=== PATIENT | female | born 1990 | race Caucasian/White ===

== ENCOUNTER 2016-08-12 22:19 | Emergency (ER) | payer MEDICAID, OTHER ==
[2016-08-12 22:44] VITALS: BP 110/72
--- NOTE | 2016-08-12 23:10 | EDM.PDOC ---
ED HPI Trauma - General Chief Complaint: Lower Extremity Injury/Pain Stated Complaint: INJURY TO BOTH ANKLES Time Seen by Provider: 08/12/16 22:40 Source: Reports: Patient History Limitations: Reports: No limitations - History of Present Illness INITIAL COMMENTS - FREE TEXT/NARRATIVE: 25 YO ALICJA presents to ER complaining of bilateral ankle pain after losing her balance at home and twisting one ankle and hurting the other at the same time while trying to compensate from the fall. Pt denies any other injury. Symptom Onset Date: 08/12/16 Occurred When: just prior to arrival Occurred Where: home Method of Injury: fall Severity: mild Pain/Injury Location: Reports: lower extremity, right, lower extremity, left Consciousness: Reports: no loss of consciousness Associated Symptoms: Reports: no other symptoms Allergies/ADRs: Allergies No Known Drug Allergies Allergy (Verified 08/12/16 22:29) Cannot Remember Home Medications: Ambulatory Orders Ibuprofen [Motrin] 600 mg PO Q6H #20 tablet 08/12/16 Past Medical History HEENT History: Reports: Hard of hearing, Impaired vision Cardiovascular History: Reports: None Respiratory History: Reports: Asthma Gastrointestinal History: Reports: None Genitourinary History: Reports: None 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: Musculoskeletal History: Reports: Other (see below) Other Musculoskeletal History: scoliosis Neurological History: Reports: Cerebral palsy, Concussion, CVA, Head trauma, Migraines Psychiatric History: Reports: Psych Hospitalization(s), Schizophrenia Endocrine/Metabolic History: Reports: Diabetes, type II Other Endocrine/Metabolic History: States does not take any medication at present time Hematologic History: Reports: None Immunologic History: Reports: None Dermatologic History: Reports: None - Past Surgical History HEENT Surgical History: Reports: None Cardiovascular Surgical History: Reports: None Respiratory Surgical History: Reports: None GI Surgical History: Reports: None Female Surgical History: Reports: None Musculoskeletal Surgical History: Reports: Other (see below) Other Musculoskeletal Surgeries/Procedures:: right ankle lengthened achilles tendon Dermatological Surgical History: Reports: None Social & Family History - Tobacco Use Smoking Status *Q: Current Every Day Smoker Years of Tobacco use: 5 Packs/Tins Daily: 0.5 Used Tobacco, but Quit: No Second Hand Smoke Exposure: Yes - Caffeine Use Caffeine Use: Reports: Soda, Tea - Alcohol Use Days Per Week of Alcohol Use: 4 Number of Drinks Per Day: 6 Total Drinks Per Week: 24 - Recreational Drug Use Recreational Drug Use: No Drug Use in Last 12 Months: No Recreational Drug Type: Reports: Marijuana/Hashish Review of Systems - Review of Systems Review Of Systems: See Below Constitutional: Reports: no symptoms Eyes: Reports: no symptoms Ears: Reports: no symptoms Nose: Reports: no symptoms Mouth/Throat: Reports: no symptoms Respiratory: Reports: No Symptoms Cardiovascular: Reports: no symptoms GI/Abdominal: Reports: No symptoms Genitourinary: Reports: no symptoms Musculoskeletal: Reports: leg pain (bilateral ankle) Skin: Reports: no symptoms Neurological: Reports: No Symptoms Psychiatric: Reports: no symptoms Trauma Exam - Physical Exam Exam: See Below Exam Limited By: No limitations General Appearance: Reports: alert, WD/WN, no apparent distress Head: Reports: atraumatic, normocephalic Ears: Reports: normal external exam, normal canal, hearing grossly normal, normal TMs Nose: Reports: normal inspection, normal mucousa, no blood Throat/Mouth: Reports: Normal inspection, Normal lips, Normal teeth, Normal gums , Normal oropharynx, Normal voice, No airway compromise Neck: Reports: non-tender, full range of motion, normal alignment, normal inspection Respiratory Exam: Reports: no respiratory distress, lungs clear, normal breath sounds Cardiovascular: Reports: normal peripheral pulses, regular rate, rhythm, no edema, no gallop, no JVD, no murmur, no rub GI/Abdominal: Reports: normal bowel sounds, soft, non tender, no organomegaly, no distention, no abnormal bruit, no mass Back: Reports: full range of motion, normal inspection, non-tender Extremities: Reports: no evidence of injury, normal range of motion, non-tender , no pedal edema, pelvis stable Neurologic: Reports: melt supervisor II-XII nml as tested, no motor/sensory deficits, alert , normal mood/affect, oriented x 3 Skin: Reports: Normal color, Warm/dry Course - Vital Signs Last Recorded V/S: Last Vital Signs Temp 36.9 C 08/12/16 22:42 Pulse 95 08/12/16 22:42 Resp 18 08/12/16 22:42 BP 110/72 08/12/16 22:42 Pulse Ox 99 08/12/16 22:42 - Orders/Labs/Meds Orders: Active Orders 24 hr Category Date Time Status Ankle Min 3V Bi [CR] Stat Exams 04/22/17 22:34 Ordered Elastic Wrap [OM.PC] Routine Oth 08/12/16 23:18 Ordered Meds: Medications Discontinued Medications Generic Name Dose Route Start Last Admin Trade Name Freq PRN Reason Stop Dose Admin Ibuprofen 600 mg 08/12/16 23:13 Motrin PO 08/12/16 23:14 ONETIME ONE Ketorolac Tromethamine 60 mg 08/12/16 23:17 Toradol IM 08/12/16 23:18 ONETIME ONE - Radiology Interpretation Free Text/Narrative:: bilateral ankle xrays- NAD Departure - Departure Time of Disposition: 23:23 Disposition: Home, Self-Care 01 Condition: good Clinical Impression: Left ankle sprain Qualifiers: Encounter type: initial encounter Involved ligament of ankle: unspecified ligament Qualified Code(s): S93.402A - Sprain of unspecified ligament of left ankle, initial encounter Right ankle sprain Qualifiers: Encounter type: initial encounter Involved ligament of ankle: unspecified ligament Qualified Code(s): S93.401A - Sprain of unspecified ligament of right ankle, initial encounter Prescriptions: Ibuprofen [Motrin] 600 mg PO Q6H #20 tablet Instructions: Ankle Sprain, [id number] Referrals: Xochitl Infante ROAD ADVISOR [Primary Care Provider] - Forms: ED Department Discharge - My Orders Last 24 Hours: My Active Orders 08/12/16 22:34 Ankle Min 3V Bi [CR] Stat 08/12/16 23:18 Elastic Wrap [OM.PC] Routine - Assessment/Plan Last 24 Hours: My Active Orders 08/12/16 22:34 Ankle Min 3V Bi [CR] Stat 08/12/16 23:18 Elastic Wrap [OM.PC] Routine Assessment:: 1. bilateral ankle sprain Plan: 1. rest/ice/elevation/crutches/toni wrap 2. motrin 600mg PO Q6 prn pain 3. follow up at clinic for further evaluation and treatment
[2016-08-12] MEDS ORDERED: Ibuprofen 600 MG Tab PO ONE (23:13)
[2016-08-12] MEDS ORDERED: Ketorolac 60 MG/2 ML SDV IM ONE (23:17)
== END 2016-08-12 23:45 | disposition home or self-care (01) ==
LOC: KA.ED 22:19
DX: S93.402A Sprain of unspecified ligament of left ankle, initial encounter (principal); S93.401A Sprain of unspecified ligament of right ankle, initial encounter; J45.909 Unspecified asthma, uncomplicated; G43.909 Migraine, unspecified, not intractable, without status migrainosus; E11.9 Type 2 diabetes mellitus without complications; F20.9 Schizophrenia, unspecified; F17.210 Nicotine dependence, cigarettes, uncomplicated; X50.1XXA Overexertion from prolonged static or awkward postures, initial encounter; Y92.009 Unspecified place in unspecified non-institutional (private) residence as the place of occurrence of the external cause
CPT/HCPCS: 73610; 96372; 99283; J1885

== ENCOUNTER 2017-08-16 10:18 | Emergency (ER) | payer MEDICAID ==
[2017-08-16 10:45] VITALS: BP 127/73
[2017-08-16] MEDS: Ketorolac 60 MG/2 ML SDV IM ONE (11:05)
--- NOTE | 2017-08-16 11:19 | EDM.PDOC ---
ED HPI GENERAL MEDICAL PROBLEM - General Chief Complaint: Lower Extremity Injury/Pain Stated Complaint: right ankle injury Time Seen by Provider: 08/16/17 10:55 Source of Information: Reports: Patient History Limitations: Reports: No Limitations - History of Present Illness INITIAL COMMENTS - FREE TEXT/NARRATIVE: 26 YO WF presents to ER with right ankle pain from injury yesterday. Pt reports she accidentally twisted ankle while stepping on uneven surface. Pt denies fall. Pt reports she was able to ambulate on ankle after injury but woke this am with more pain and swelling prompting ER evaluation. Pt denies any foot pain or other complaints or injuries. Onset Date: 08/15/17 Duration: Day(s): (2) Location: Reports: Lower Extremity, Right Quality: Reports: Ache Severity: Mild Improves with: Reports: Rest Worsens with: Reports: Movement Context: Reports: Activity Associated Symptoms: Reports: No Other Symptoms Treatments DRIER: Reports: Acetaminophen, Cold Therapy Right Ankle Pain Score (Numeric/FACES): 10 - Related Data Allergies Allergy/AdvReac Type Severity Reaction Status Date / Time No Known Drug Allergies Allergy Cannot Verified 08/16/17 10:38 Remember Home Meds: Home Meds Ibuprofen [Motrin] 600 mg PO Q6H #20 tablet 08/12/16 [Rx] traMADol [Ultram] 50 mg PO Q6H PRN #15 tab 08/16/17 [Rx] Past Medical History HEENT History: Reports: Hard of Hearing, Impaired Vision Cardiovascular History: Reports: None Respiratory History: Reports: Asthma Gastrointestinal History: Reports: None Genitourinary History: Reports: None 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: Musculoskeletal History: Reports: Other (See Below) Other Musculoskeletal History: scoliosis Neurological History: Reports: Cerebral Palsy, Concussion, CVA, Head Trauma, Migraines Psychiatric History: Reports: Psych Hospitalization(s), Schizophrenia Endocrine/Metabolic History: Reports: Diabetes, Type II Other Endocrine/Metabolic History: States does not take any medication at present time Hematologic History: Reports: None Immunologic History: Reports: None Dermatologic History: Reports: None - Past Surgical History Cardiovascular Surgical History: Reports: None Respiratory Surgical History: Reports: None GI Surgical History: Reports: None Female Surgical History: Reports: None Musculoskeletal Surgical History: Reports: Other (See Below) Other Musculoskeletal Surgeries/Procedures:: history of cerebral palsy and stroke at Dermatological Surgical History: Reports: None Social & Family History - Tobacco Use Smoking Status *Q: Current Every Day Smoker Years of Tobacco use: 5 Packs/Tins Daily: 0.5 Used Tobacco, but Quit: No Second Hand Smoke Exposure: Yes - Caffeine Use Caffeine Use: Reports: Soda, Tea - Alcohol Use Days Per Week of Alcohol Use: 4 Number of Drinks Per Day: 6 Total Drinks Per Week: 24 - Recreational Drug Use Recreational Drug Use: No Drug Use in Last 12 Months: No Recreational Drug Type: Reports: Marijuana/Hashish Review of Systems - Review of Systems Review Of Systems: See Below Constitutional: Reports: No Symptoms Eyes: Reports: No Symptoms Ears: Reports: No Symptoms Nose: Reports: No Symptoms Mouth/Throat: Reports: No Symptoms Respiratory: Reports: No Symptoms Cardiovascular: Reports: No Symptoms GI/Abdominal: Reports: No Symptoms Genitourinary: Reports: No Symptoms Musculoskeletal: Reports: Leg Pain Skin: Reports: No Symptoms Neurological: Reports: No Symptoms Psychiatric: Reports: No Symptoms ED EXAM, GENERAL - Physical Exam Exam: See Below Exam Limited By: No Limitations General Appearance: Alert, WD/WN, No Apparent Distress Neck: Normal Inspection, Supple, Non-Tender, Full Range of Motion Respiratory/Chest: No Respiratory Distress, Lungs Clear, Normal Breath Sounds, No Accessory Muscle Use, Chest Non-Tender Cardiovascular: Normal Peripheral Pulses, Regular Rate, Rhythm, No Edema, No Gallop, No JVD, No Murmur, No Rub GI/Abdominal: Normal Bowel Sounds, Soft, Non-Tender, No Organomegaly, No Distention, No Abnormal Bruit, No Mass Back Exam: Normal Inspection, Full Range of Motion, NT Extremities: Leg Pain (right ankle pain with minimal swelling to lateral malleolous ) Neurological: Alert, Oriented, CN II-XII Intact, Normal Cognition, Normal Gait, Normal Reflexes, No Motor/Sensory Deficits Psychiatric: Normal Affect, Normal Mood Skin Exam: Warm, Dry, Intact, Normal Color, No Rash Lymphatic: No Adenopathy ED TRAUMA EXTREMITY PROCEDURES - Splinting Right Lower Extremity Splint Site: right ankle Pre-Procedure NV Status: Normal Post-Procedure NV Status: Normal Splint Material: Air Splint Applied & Form Fitted By: Provider Provider Post-Splint Application NV Check: NV Status Normal, Good Position Complications: No Course - Vital Signs Last Recorded V/S: Last Vital Signs Temp 35.9 C 08/16/17 10:42 Pulse 95 08/16/17 10:42 Resp 16 08/16/17 10:42 BP 127/73 08/16/17 10:42 Pulse Ox 97 08/16/17 10:42 - Orders/Labs/Meds Orders: Active Orders 24 hr Category Date Time Status Ankle Min 3V Rt [CR] Stat Exams 08/16/17 10:39 Ordered Foot Comp Min 3V Rt [CR] Stat Exams 08/16/17 10:41 Taken Meds: Medications Discontinued Medications Generic Name Dose Route Start Last Admin Trade Name Freq PRN Reason Stop Dose Admin Ketorolac Tromethamine 60 mg 08/16/17 10:38 08/16/17 11:05 Toradol IM 08/16/17 10:39 60 mg ONETIME ONE Administration - Radiology Interpretation Free Text/Narrative:: right ankle- NAD right foot- NAD Departure - Departure Time of Disposition: 11:19 Disposition: Home, Self-Care 01 Condition: Good Clinical Impression: Ankle sprain Qualifiers: Encounter type: initial encounter Laterality: right Right ankle sprain Qualifiers: Encounter type: initial encounter Involved ligament of ankle: unspecified ligament Qualified Code(s): S93.401A - Sprain of unspecified ligament of right ankle, initial encounter - Discharge Information Prescriptions: traMADol [Ultram] 50 mg PO Q6H PRN #15 tab PRN Reason: Pain Instructions: Ankle Sprain, [id number] Referrals: Xochitl Infante, ENROLLMENT COORDINATOR [Primary Care Provider] - - My Orders Last 24 Hours: My Active Orders 08/16/17 10:39 Ankle Min 3V Rt [CR] Stat 08/16/17 10:41 Foot Comp Min 3V Rt [CR] Stat - Assessment/Plan Last 24 Hours: My Active Orders 08/16/17 10:39 Ankle Min 3V Rt [CR] Stat 08/16/17 10:41 Foot Comp Min 3V Rt [CR] Stat Assessment:: 1. ankle sprain Plan: 1. discharge home 2. follow up in clinic for recheck and possible ortho outpatient follow up 3. ultram/motrinfor pain 4. crutches/ankle lock splint 5. return to ER for worsening symptoms
== END 2017-08-16 11:25 | disposition home or self-care (01) ==
LOC: KA.ED 10:18
DX: S93.401A Sprain of unspecified ligament of right ankle, initial encounter (principal); E11.9 Type 2 diabetes mellitus without complications; F17.210 Nicotine dependence, cigarettes, uncomplicated; X50.1XXA Overexertion from prolonged static or awkward postures, initial encounter
CPT/HCPCS: 73610-RT; 73630-RT; 96372; 99283; J1885

== ENCOUNTER 2017-09-03 22:43 | Emergency (ER) | payer MEDICAID ==
[2017-09-03 22:47] VITALS: BP 135/80
[2017-09-03] MEDS ORDERED: Sulfamethoxazole/Trimethoprim 800-160 MG Tab PO ONE (23:18)
--- NOTE | 2017-09-03 23:18 | EDM.PDOC ---
ED HPI GENERAL MEDICAL PROBLEM - General Chief Complaint: Bite:Animal, Insect Stated Complaint: spider bite Time Seen by Provider: 09/03/17 23:00 Source of Information: Reports: Patient History Limitations: Reports: No Limitations - History of Present Illness INITIAL COMMENTS - FREE TEXT/NARRATIVE: 26 YO WF presents to ER with small area on inside of left breast with redness, itching and pain. Pt concerned she was bitten by a spider. Pt denies any fever/ chills, no drainage from site, no nipple involvement. Pt reports she has been squeezing it to see if anything would come out. Duration: Day(s): (2) Location: Reports: Chest Quality: Reports: Ache Severity: Mild Improves with: Reports: None Worsens with: Reports: None Associated Symptoms: Denies: Chest Pain, Fever/Chills, Malaise, Nausea/Vomiting , Shortness of Breath, Weakness Left Breast Pain Score (Numeric/FACES): 8 - Related Data Allergies Allergy/AdvReac Type Severity Reaction Status Date / Time No Known Drug Allergies Allergy Cannot Verified 09/03/17 22:44 Remember Home Meds: Home Meds Cephalexin [Keflex] 500 mg PO Q6H #40 cap 09/03/17 [Rx] Cyclobenzaprine [Flexeril] 5 mg PO BID 09/03/17 [History] Sulfamethoxazole/Trimethoprim [Septra DS] 1 each PO BID #20 tab 09/03/17 [Rx] Past Medical History HEENT History: Reports: Hard of Hearing, Impaired Vision Cardiovascular History: Reports: None Respiratory History: Reports: Asthma Gastrointestinal History: Reports: None Genitourinary History: Reports: None 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: Musculoskeletal History: Reports: Other (See Below) Other Musculoskeletal History: scoliosis Neurological History: Reports: Cerebral Palsy, Concussion, CVA, Head Trauma, Migraines Psychiatric History: Reports: Psych Hospitalization(s), Schizophrenia Endocrine/Metabolic History: Reports: Diabetes, Type II Other Endocrine/Metabolic History: States does not take any medication at present time Hematologic History: Reports: None Immunologic History: Reports: None Dermatologic History: Reports: None - Past Surgical History Cardiovascular Surgical History: Reports: None Respiratory Surgical History: Reports: None GI Surgical History: Reports: None Female Surgical History: Reports: None Musculoskeletal Surgical History: Reports: Other (See Below) Other Musculoskeletal Surgeries/Procedures:: history of cerebral palsy and stroke at Dermatological Surgical History: Reports: None Social & Family History - Tobacco Use Smoking Status *Q: Current Every Day Smoker Years of Tobacco use: 16 Packs/Tins Daily: 0.5 - Caffeine Use Caffeine Use: Reports: Soda, Tea - Recreational Drug Use Recreational Drug Use: No ED ROS GENERAL - Review of Systems Review Of Systems: See Below Constitutional: Reports: No Symptoms HEENT: Reports: No Symptoms Respiratory: Reports: No Symptoms Cardiovascular: Reports: No Symptoms Endocrine: Reports: No Symptoms GI/Abdominal: Reports: No Symptoms : Reports: No Symptoms Musculoskeletal: Reports: No Symptoms Skin: Reports: Erythema (left inner breast 1 cm area) Neurological: Reports: No Symptoms Psychiatric: Reports: No Symptoms Hematologic/Lymphatic: Reports: No Symptoms Immunologic: Reports: No Symptoms ED EXAM, ANIMAL BITE - Physical Exam Exam: See Below Exam Limited By: No Limitations General Appearance: Alert, WD/WN, No Apparent Distress Head: Atraumatic, Normocephalic Neck: Normal Inspection, Supple, Non-Tender, Full Range of Motion Respiratory/Chest: No Respiratory Distress, Lungs Clear, Normal Breath Sounds, No Accessory Muscle Use, Chest Non-Tender Cardiovascular: Normal Peripheral Pulses, Regular Rate, Rhythm, No Edema, No Gallop, No JVD, No Murmur, No Rub GI/Abdominal: Normal Bowel Sounds, Soft, Non-Tender, No Organomegaly, No Distention, No Abnormal Bruit, No Mass Back Exam: Normal Inspection, Full Range of Motion, NT Extremities: Normal Inspection, Normal Range of Motion, Non-Tender, Normal Capillary Refill, No Pedal Edema Neurological: Alert, Oriented, CN II-XII Intact, Normal Cognition, Normal Gait, Normal Reflexes, No Motor/Sensory Deficits Psychiatric: Normal Affect, Normal Mood Skin Exam: Other (1 cm area on inner right breast with erythema, no discharge, no induration) Lymphatic: No Adenopathy Course - Vital Signs Last Recorded V/S: Last Vital Signs Temp 35.9 C 09/03/17 22:46 Pulse 120 H 09/03/17 22:46 Resp 14 09/03/17 22:46 BP 135/80 09/03/17 22:46 Pulse Ox 99 09/03/17 22:46 - Orders/Labs/Meds Orders: Active Orders 24 hr Category Date Time Status Cephalexin [Keflex] Med 09/03/17 23:30 Ordered 250 mg PO Q6HR Sulfamethoxazole/Trimethoprim [Septra DS] Med 09/03/17 23:18 Once 1 tab PO ONETIME ONE Departure - Departure Time of Disposition: 23:27 Disposition: Home, Self-Care 01 Condition: Good Clinical Impression: Cellulitis Qualifiers: Site of cellulitis of trunk: chest wall - Discharge Information Prescriptions: Cephalexin [Keflex] 500 mg PO Q6H #40 cap Sulfamethoxazole/Trimethoprim [Septra DS] 1 each PO BID #20 tab Instructions: Cellulitis, Adult, [id number] Referrals: PCP,Jaxon [Primary Care Provider] - Xochitl Infante, MARINE ENGINE MACHINIST APPRENTICE [Nurse Practitioner] - Forms: ED Department Discharge - My Orders Last 24 Hours: My Active Orders 09/03/17 23:18 Sulfamethoxazole/Trimethoprim [Septra DS] 1 tab PO ONETIME ONE 09/03/17 23:30 Cephalexin [Keflex] 250 mg PO Q6HR - Assessment/Plan Last 24 Hours: My Active Orders 09/03/17 23:18 Sulfamethoxazole/Trimethoprim [Septra DS] 1 tab PO ONETIME ONE 09/03/17 23:30 Cephalexin [Keflex] 250 mg PO Q6HR Assessment:: 1. small 1 cm area consistent with early cellulitis to left breast Plan: 1. septra DS BID x 10 days 2. keflex 500mg Q6 x 10 days 3. follow up with PCP in 2 days for recheck 4. return to ER for fever or worsening symptoms 5. discharge home
[2017-09-03] MEDS: Cephalexin 250 MG Cap PO SCH ×2 (23:25→23:30)
== END 2017-09-03 23:35 | disposition home or self-care (01) ==
LOC: KA.ED 22:43
DX: L03.313 Cellulitis of chest wall (principal); J45.909 Unspecified asthma, uncomplicated; E11.9 Type 2 diabetes mellitus without complications; F17.210 Nicotine dependence, cigarettes, uncomplicated; Z86.73 Personal history of transient ischemic attack (TIA), and cerebral infarction without residual deficits; Z79.899 Other long term (current) drug therapy
CPT/HCPCS: 99283; A9270-GY

== ENCOUNTER 2018-07-06 02:16 | Emergency (ER) | payer MEDICAID ==
--- NOTE | 2018-07-06 02:18 | EDM.PDOC ---
ED HPI GENERAL MEDICAL PROBLEM - General Chief Complaint: Headache Stated Complaint: migraine Time Seen by Provider: 07/06/18 02:17 Source of Information: Reports: Patient History Limitations: Reports: No Limitations - History of Present Illness INITIAL COMMENTS - FREE TEXT/NARRATIVE: 27 YO WF presents to ER complaining of 3 day history of generalized headache with associated nausea. Pt reports longstanding history of migraine headaches and reports this headache is similar in character. Pt reports she has history of seizures but states they're well controlled. Pt states she recently had a CT head which was normal. Pt denies taking any OTC medication at home. Pt is currently angry with staff and does not appear to be in any distress. Pt is upset because she feels she had to wait for her pain medications. Pt is raising her voice to staff as well as using profanity. Onset Date: 07/04/18 Duration: Day(s): (3) Location: Reports: Head Quality: Reports: Ache Severity: Moderate Improves with: Reports: None Worsens with: Reports: None Associated Symptoms: Reports: Headaches, Nausea/Vomiting. 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 GAME DEVELOPER History: right ovarien rupture Musculoskeletal History: Reports: Other (See Below) Other Musculoskeletal History: scoliosis Neurological History: Reports: Cerebral Palsy, Concussion, CVA, Head Trauma, Migraines Psychiatric History: Reports: Psych Hospitalization(s), Schizophrenia Endocrine/Metabolic History: Reports: Diabetes, Type II Other Endocrine/Metabolic History: States does not take any medication at present time Hematologic History: Reports: None Immunologic History: Reports: None Dermatologic History: Reports: None - Past Surgical History Cardiovascular Surgical History: Reports: None Respiratory Surgical History: Reports: None GI Surgical History: Reports: None Female Surgical History: Reports: None Musculoskeletal Surgical History: Reports: Other (See Below) Other Musculoskeletal Surgeries/Procedures:: history of cerebral palsy and stroke at Dermatological Surgical History: Reports: None Social & Family History - Caffeine Use Caffeine Use: Reports: Soda, Tea ED ROS GENERAL - Review of Systems Review Of Systems: See Below Constitutional: Reports: No Symptoms HEENT: Reports: No Symptoms Respiratory: Reports: No Symptoms Cardiovascular: Reports: No Symptoms Endocrine: Reports: No Symptoms GI/Abdominal: Reports: No Symptoms : Reports: No Symptoms Musculoskeletal: Reports: No Symptoms Skin: Reports: No Symptoms Neurological: Reports: Headache. Denies: Dizziness, Numbness, Seizure, Trouble Speaking, Difficulty Walking, Weakness, Change in Speech, Gait Disturbance Psychiatric: Reports: No Symptoms Hematologic/Lymphatic: Reports: No Symptoms Immunologic: Reports: No Symptoms - Physical Exam Exam: See Below Exam Limited By: No Limitations General Appearance: Alert, WD/WN, No Apparent Distress Eye Exam: Bilateral Eye: EOMI, PERRL Head Exam: Atraumatic, Normocephalic Neck: Normal Inspection, Supple, Non-Tender, Full Range of Motion Respiratory/Chest: No Respiratory Distress, Lungs Clear, Normal Breath Sounds, No Accessory Muscle Use, Chest Non-Tender Cardiovascular: Normal Peripheral Pulses, Regular Rate, Rhythm, No Edema, No Gallop, No JVD, No Murmur, No Rub GI/Abdominal: Normal Bowel Sounds, Soft, Non-Tender, No Organomegaly, No Distention, No Abnormal Bruit, No Mass Neuro Exam (Abbreviated): Alert, Oriented, CN II-XII Intact, Normal Cognition, Normal Gait, Normal Reflexes, No Motor/Sensory Deficits Back Exam: Normal Inspection, Full Range of Motion, NT Extremities: Normal Inspection, Normal Range of Motion, Non-Tender, No Pedal Edema, Normal Capillary Refill Psychiatric: Normal Affect, Normal Mood Skin Exam: Warm, Dry, Intact, Normal Color, No Rash Course - Orders/Labs/Meds Orders: Active Orders 24 hr Category Date Time Status Peripheral IV Care [RC] . DIRECTED Care 07/06/18 02:28 Active Sodium Chloride 0.9% [Saline Flush] Med 07/06/18 02:28 Active 10 ml FLUSH Q8HR PRN Peripheral IV Insertion Adult [OM.PC] Routine Oth 07/06/18 02:28 Ordered Medication Orders Sodium Chloride (Saline Flush) 10 ml FLUSH Q8HR PRN PRN Reason: keep vein open Labs: Laboratory Tests 07/06/18 Range/Units 03:00 Urine HCG, Qual Negative (NEGATIVE) Meds: Medications Generic Name Dose Route Start Last Admin Trade Name Ramiro PRN Reason Stop Dose Admin Sodium Chloride 10 ml 07/06/18 02:28 Saline Flush FLUSH Q8HR PRN keep vein open Discontinued Medications Generic Name Dose Route Start Last Admin Trade Name Ramiro PRN Reason Stop Dose Admin Diphenhydramine HCl 50 mg 07/06/18 02:29 Benadryl IVPUSH 07/06/18 02:30 ONETIME ONE Diphenhydramine HCl Confirm 07/06/18 03:47 Benadryl Administered 07/06/18 03:48 Dose 50 mg .ROUTE .STK-MED ONE Ketorolac Tromethamine 30 mg 07/06/18 02:29 Toradol IVPUSH 07/06/18 02:30 ONETIME ONE Metoclopramide HCl 10 mg 07/06/18 02:29 Reglan IVPUSH 07/06/18 02:30 ONETIME ONE - Radiology Interpretation Free Text/Narrative:: headache improved. Pt alert and oriented x 4. Pt wants to go home Departure - Departure Time of Disposition: 04:01 Disposition: Home, Self-Care 01 Condition: Good Clinical Impression: Migraine - Discharge Information Instructions: Recurrent Migraine Headache, [id number] Forms: ED Department Discharge Additional Instructions: 1. discharge home 2. follow up with PCP for further evaluation and treatment 3. return to ER for worsening symptoms - My Orders Last 24 Hours: My Active Orders 07/06/18 02:28 Peripheral IV Care [RC] . DIRECTED Sodium Chloride 0.9% [Saline Flush] 10 ml FLUSH Q8HR PRN Peripheral IV Insertion Adult [OM.PC] Routine - Assessment/Plan Last 24 Hours: My Active Orders 07/06/18 02:28 Peripheral IV Care [RC] . DIRECTED Sodium Chloride 0.9% [Saline Flush] 10 ml FLUSH Q8HR PRN Peripheral IV Insertion Adult [OM.PC] Routine Assessment:: 1. Headache Plan: 1. discharge home 2. follow up with PCP for further evaluation and treatment 3. return to ER for worsening symptoms
[2018-07-06] MEDS ORDERED: Sodium Chloride 0.9% 10 ML Syringe FLUSH PRN (02:28)
[2018-07-06] MEDS ORDERED: diphenhydrAMINE 50 MG/ML SDV IVPUSH ONE (02:29)
[2018-07-06] MEDS ORDERED: Ketorolac 30 MG/ML SDV IVPUSH ONE (02:29)
[2018-07-06] MEDS ORDERED: Metoclopramide 10 MG/2 ML SDV IVPUSH ONE (02:29)
[2018-07-06] MEDS ORDERED: Sodium Chloride 0.9% 1,000 ML IV ONE (02:30)
[2018-07-06] MEDS ORDERED: diphenhydrAMINE 50 MG/ML SDV ONE (03:47)
[2018-07-06] MEDS ORDERED: Sodium Chloride 0.9% 1,000 ML ONE (05:04)
[2018-07-06 09:47] VITALS: BP 140/90
== END 2018-07-06 04:20 | disposition home or self-care (01) ==
LOC: KA.ED 02:16
DX: G43.909 Migraine, unspecified, not intractable, without status migrainosus (principal)
CPT/HCPCS: 81025; 96361; 96374; 96375; 99284; J1200; J1885; J2765; J7030

== ENCOUNTER 2018-08-10 21:54 | Emergency (ER) | payer MEDICAID ==
[2018-08-10] MEDS ORDERED: Sodium Chloride 0.9% 1,000 ML IV ONE (22:00)
[2018-08-10] MEDS ORDERED: diphenhydrAMINE 50 MG/ML SDV IVPUSH ONE (22:32)
[2018-08-10] MEDS: Sodium Chloride 0.9% 1,000 ML ONE (22:32)
[2018-08-10] MEDS: Metoclopramide 10 MG/2 ML SDV ONE (22:32)
[2018-08-10] MEDS ORDERED: Metoclopramide 10 MG/2 ML SDV IVPUSH ONE (22:32)
[2018-08-10] MEDS: diphenhydrAMINE 50 MG/ML SDV ONE (22:32)
--- NOTE | 2018-08-10 22:32 | EDM.PDOC ---
ED HPI GENERAL MEDICAL PROBLEM - General Chief Complaint: Headache Stated Complaint: MIGRAINE Time Seen by Provider: 08/10/18 22:10 Source of Information: Reports: Patient History Limitations: Reports: No Limitations - History of Present Illness INITIAL COMMENTS - FREE TEXT/NARRATIVE: 27 YO WF presents to ER complaining of 6 days history of generalized headache with associated nausea and vomiting x 3. Pt reports longstanding history of migraine headaches and reports this headache is similar in character and intensity. Pt reports she has history of seizures but states they're well controlled. Pt states she recently had a CT head which was normal. Pt was suppose to see neurology but never made it to her appointment. Pt states she took Imitrex x 3 and OTC pain medications without relief. Duration: Day(s): (1) Location: Reports: Head Quality: Reports: Ache Severity: Moderate Worsens with: Reports: None Associated Symptoms: Reports: No Other Symptoms, Headaches, Nausea/Vomiting. 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 Neurological History: Reports: Cerebral Palsy, Concussion, CVA, Head Trauma, Migraines Psychiatric History: Reports: Psych Hospitalization(s), Schizophrenia Endocrine/Metabolic History: Reports: Diabetes, Type II Other Endocrine/Metabolic History: States does not take any medication at present time Hematologic History: Reports: None Immunologic History: Reports: None Dermatologic History: Reports: None - Past Surgical History Cardiovascular Surgical History: Reports: None Respiratory Surgical History: Reports: None GI Surgical History: Reports: None Female Surgical History: Reports: None Musculoskeletal Surgical History: Reports: Other (See Below) Other Musculoskeletal Surgeries/Procedures:: history of cerebral palsy and stroke at Dermatological Surgical History: Reports: None Social & Family History - Caffeine Use Caffeine Use: Reports: Soda, Tea Caffeine Use Comment: did not ask ED ROS GENERAL - Review of Systems Review Of Systems: See Below Constitutional: Reports: No Symptoms HEENT: Reports: No Symptoms Respiratory: Reports: No Symptoms Cardiovascular: Reports: No Symptoms Endocrine: Reports: No Symptoms GI/Abdominal: Reports: Nausea, Vomiting : Reports: No Symptoms Musculoskeletal: Reports: No Symptoms Skin: Reports: No Symptoms Neurological: Reports: Headache. Denies: Confusion, Dizziness, Numbness, Paresthesia, Seizure, Trouble Speaking, Difficulty Walking, Weakness, Change in Speech, Gait Disturbance Psychiatric: Reports: Mood Lability Hematologic/Lymphatic: Reports: No Symptoms Immunologic: Reports: No Symptoms - Physical Exam Exam: See Below Exam Limited By: No Limitations General Appearance: Alert, WD/WN, Mild Distress Eye Exam: Bilateral Eye: EOMI, PERRL Head Exam: Atraumatic, Normocephalic Neck: Normal Inspection, Supple, Non-Tender, Full Range of Motion Respiratory/Chest: No Respiratory Distress, Lungs Clear, Normal Breath Sounds, No Accessory Muscle Use, Chest Non-Tender Cardiovascular: Normal Peripheral Pulses, Regular Rate, Rhythm, No Edema, No Gallop, No JVD, No Murmur, No Rub GI/Abdominal: Normal Bowel Sounds, Soft, Non-Tender, No Organomegaly, No Distention, No Abnormal Bruit, No Mass Neuro Exam (Abbreviated): Alert, Oriented, CN II-XII Intact, Normal Cognition, Normal Gait, Normal Reflexes, No Motor/Sensory Deficits Back Exam: Normal Inspection, Full Range of Motion, NT Extremities: Normal Inspection, Normal Range of Motion, Non-Tender, No Pedal Edema, Normal Capillary Refill Psychiatric: Normal Affect, Normal Mood Skin Exam: Warm, Dry, Intact, Normal Color, No Rash Course - Orders/Labs/Meds Labs: Laboratory Tests 08/10/18 Range/Units 22:20 HCG, Qual Negative (NEGATIVE) Meds: Medications Discontinued Medications Generic Name Dose Route Start Last Admin Trade Name Ramiro PRN Reason Stop Dose Admin Diphenhydramine HCl Confirm 08/10/18 22:05 08/10/18 22:32 Benadryl Administered 08/10/18 22:06 50 mg Dose Administration 50 mg .ROUTE .STK-MED ONE Sodium Chloride Confirm 08/10/18 22:05 08/10/18 22:32 Normal Saline Administered 08/10/18 22:06 999 mls/hr Dose Administration 1,000 mls @ as directed .ROUTE .STK-MED ONE Ketorolac Tromethamine 30 mg 08/10/18 22:42 Toradol IVPUSH 08/10/18 22:43 ONETIME ONE Metoclopramide HCl Confirm 08/10/18 22:05 08/10/18 22:32 Reglan Administered 08/10/18 22:06 10 mg Dose Administration 10 mg .ROUTE .STK-MED ONE - Radiology Interpretation Free Text/Narrative:: pain improved after medications and fluids. Pt instructed to follow up with neurology or PCP for further management. Pt alert and oriented x 4 without vomiting. GCS-15; NAD Departure - Departure Time of Disposition: 22:37 Disposition: Home, Self-Care 01 Condition: Good Clinical Impression: Migraine - Discharge Information Instructions: Recurrent Migraine Headache, [id number] Referrals: Xochitl Infante, ROASTER HELPER [Primary Care Provider] - Forms: ED Department Discharge Additional Instructions: 1. discharge home 2. follow up with PCP for further evaluation and treatment 3. rest/plenty of fluids/supportive care 4. return to ER for worsening symptoms - Assessment/Plan Assessment:: 1. Chronic migraine headaches Plan: 1. discharge home 2. follow up with PCP for further evaluation and treatment 3. rest/plenty of fluids/supportive care 4. return to ER for worsening symptoms
[2018-08-10] MEDS ORDERED: Ketorolac 30 MG/ML SDV IVPUSH ONE (22:42)
[2018-08-11 02:26] VITALS: BP 112/64
[2018-08-12] MEDS: diphenhydrAMINE 50 MG/ML SDV ONE (11:56)
[2018-08-12] MEDS: Sodium Chloride 0.9% 1,000 ML ONE (11:56)
[2018-08-12] MEDS: Metoclopramide 10 MG/2 ML SDV ONE (12:01)
== END 2018-08-10 23:15 | disposition home or self-care (01) ==
LOC: KA.ED 21:54
DX: G43.909 Migraine, unspecified, not intractable, without status migrainosus (principal); E11.9 Type 2 diabetes mellitus without complications
CPT/HCPCS: 84703; 96361; 96374; 96375; 99283-25; J1200; J1885; J2765; J7030

== ENCOUNTER 2018-10-24 23:00 | Emergency (ER) | payer MEDICAID ==
[2018-10-24 23:18] VITALS: BP 127/77; PULSE 102
[2018-10-24] MEDS ORDERED: diphenhydrAMINE 50 MG/ML SDV IVPUSH ONE (23:25)
[2018-10-24] MEDS ORDERED: methylPREDNISolone Sodium Succinate 125 MG/2 ML SDV IVPUSH ONE (23:25)
[2018-10-24] MEDS ORDERED: Sodium Chloride 0.9% 10 ML Syringe FLUSH PRN (23:25)
[2018-10-24] MEDS ORDERED: Metoclopramide 10 MG/2 ML SDV IVPUSH ONE (23:25)
[2018-10-24] MEDS ORDERED: Sodium Chloride 0.9% 1,000 ML IV ONE (23:25)
--- NOTE | 2018-10-24 23:36 | EDM.PDOC ---
ED HPI GENERAL MEDICAL PROBLEM - General Chief Complaint: Headache Stated Complaint: migraine Time Seen by Provider: 10/24/18 23:24 Source of Information: Reports: Patient History Limitations: Reports: No Limitations - History of Present Illness INITIAL COMMENTS - FREE TEXT/NARRATIVE: Patient's a 27-year-old female who presents to the emergency department this evening with a complaint of migraine headache. Patient states that the migraines been going on for 4 days, is her typical migraine, and she's had some issues while attending a wedding today and feels this worsened the headache. Patient denies fever, blurry vision, dizziness, chest pain, shortness of breath , numbness or tingling of face or scalp, nausea, vomiting, diarrhea, out of country travel, stiff neck, or headache that is different from her usual Onset: Gradual Duration: Day(s): Location: Reports: Head Quality: Reports: Ache, Pressure Severity: Moderate Improves with: Reports: None Worsens with: Reports: None Context: Denies: Trauma Associated Symptoms: Reports: No Other Symptoms. Denies: Confusion, Chest Pain , Cough, Fever/Chills, Nausea/Vomiting, Shortness of Breath Treatments HATCH TENDER: Reports: Acetaminophen, NSAIDS Headache Pain Score (Numeric/FACES): 30 - Related Data Allergies Allergy/AdvReac Type Severity Reaction Status Date / Time No Known Drug Allergies Allergy Cannot Verified 10/24/18 23:22 Remember Home Meds: Home Meds Acetaminophen [Tylenol] 650 mg PO Q6HR PRN 10/24/18 [History] Ibuprofen 200 mg PO ASDIRECTED PRN 10/24/18 [History] Past Medical History HEENT History: Reports: Hard of Hearing, Impaired Vision Cardiovascular History: Reports: None Respiratory History: Reports: Asthma Gastrointestinal History: Reports: None Genitourinary History: Reports: None 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 Neurological History: Reports: Cerebral Palsy, Concussion, CVA, Head Trauma, Migraines Psychiatric History: Reports: Psych Hospitalization(s), Schizophrenia Endocrine/Metabolic History: Reports: Diabetes, Type II Other Endocrine/Metabolic History: States does not take any medication at present time Hematologic History: Reports: None Immunologic History: Reports: None Dermatologic History: Reports: None - Past Surgical History Cardiovascular Surgical History: Reports: None Respiratory Surgical History: Reports: None GI Surgical History: Reports: None Female Surgical History: Reports: None Musculoskeletal Surgical History: Reports: Other (See Below) Other Musculoskeletal Surgeries/Procedures:: history of cerebral palsy and stroke at Dermatological Surgical History: Reports: None Social & Family History - Family History Family Medical History: Noncontributory - Tobacco Use Smoking Status *Q: Current Every Day Smoker Years of Tobacco use: 12 Packs/Tins Daily: 0.5 - Caffeine Use Caffeine Use: Reports: Soda, Tea Caffeine Use Comment: did not ask - Recreational Drug Use Recreational Drug Use: No ED ROS GENERAL - Review of Systems Review Of Systems: ROS reveals no pertinent complaints other than HPI. Constitutional: Reports: No Symptoms, Other (Denies suspicion of ) HEENT: Reports: No Symptoms Respiratory: Reports: No Symptoms Cardiovascular: Reports: No Symptoms Endocrine: Reports: No Symptoms GI/Abdominal: Reports: No Symptoms : Reports: No Symptoms Musculoskeletal: Reports: No Symptoms Skin: Reports: No Symptoms Neurological: Reports: Headache. Denies: Confusion, Dizziness, Numbness, Paresthesia, Seizure, Trouble Speaking, Change in Speech, Gait Disturbance Psychiatric: Reports: No Symptoms Hematologic/Lymphatic: Reports: No Symptoms Immunologic: Reports: No Symptoms - Physical Exam Exam: See Below Exam Limited By: No Limitations General Appearance: Alert, WD/WN, No Apparent Distress Eye Exam: Bilateral Eye: Normal Inspection Ears: Normal External Exam, Normal Canal, Normal TMs Nose: Normal Inspection, Normal Mucosa, No Blood Throat/Mouth: Normal Inspection, Normal Oropharynx, No Airway Compromise Head Exam: Atraumatic, Normocephalic Neck: Normal Inspection, Supple, Non-Tender, Full Range of Motion Respiratory/Chest: No Respiratory Distress, Lungs Clear, Normal Breath Sounds, No Accessory Muscle Use, Chest Non-Tender Cardiovascular: Regular Rate, Rhythm, No Murmur GI/Abdominal: Normal Bowel Sounds, Soft, Non-Tender Neuro Exam (Abbreviated): Alert, Oriented, CN II-XII Intact, Normal Cognition, No Motor/Sensory Deficits Back Exam: Normal Inspection. No: CVA Tenderness (L), CVA Tenderness (R) Extremities: Normal Inspection, No Pedal Edema Psychiatric: Other (Agitated and abusive) Skin Exam: Warm, Dry, Intact, Normal Color, No Rash Course - Vital Signs Last Recorded V/S: Last Vital Signs Temp 97.1 F 10/24/18 23:10 Pulse 102 H 10/24/18 23:10 Resp 16 10/24/18 23:10 BP 127/77 10/24/18 23:10 Pulse Ox 98 10/24/18 23:10 - Orders/Labs/Meds Orders: Active Orders 24 hr Category Date Time Status Peripheral IV Care [RC] . DIRECTED Care 10/24/18 23:25 Ordered Metoclopramide [Reglan] Med 10/24/18 23:25 Once 10 mg IVPUSH ONETIME ONE Sodium Chloride 0.9% @ 999 MLS/HR (1000ml) Med 10/24/18 23:25 Ordered Sodium Chloride 0.9% [Normal Saline] 1,000 ml IV .BOLUS Sodium Chloride 0.9% [Saline Flush] Med 10/24/18 23:25 Ordered 10 ml FLUSH Q8HR PRN diphenhydrAMINE [Benadryl] Med 10/24/18 23:25 Once 25 mg IVPUSH ONETIME ONE methylPREDNISolone Sod Succ [Solu-MEDROL] Med 10/24/18 23:25 Once 125 mg IVPUSH ONETIME ONE Peripheral IV Insertion Adult [OM.PC] Routine Oth 10/24/18 23:25 Ordered - Re-Assessments/Exams Free Text/Narrative Re-Assessment/Exam: 10/24/18 23:52 Patient afebrile, vital signs stable, pain relieved. Patient will follow-up with PCP. Departure - Departure Time of Disposition: 23:52 Disposition: Home, Self-Care 01 Condition: Good Clinical Impression: Migraine - Discharge Information Instructions: Recurrent Migraine Headache, [id number] Additional Instructions: Follow-up with PCP in 2-3 days. Return to emergency department sooner if symptoms continue or worsen. - My Orders Last 24 Hours: My Active Orders 10/24/18 23:25 Peripheral IV Care [RC] . DIRECTED Metoclopramide [Reglan] 10 mg IVPUSH ONETIME ONE Sodium Chloride 0.9% @ 999 MLS/HR (1000ml) Sodium Chloride 0.9% [Normal Saline] 1,000 ml IV .BOLUS Sodium Chloride 0.9% [Saline Flush] 10 ml FLUSH Q8HR PRN diphenhydrAMINE [Benadryl] 25 mg IVPUSH ONETIME ONE methylPREDNISolone Sod Succ [Solu-MEDROL] 125 mg IVPUSH ONETIME ONE Peripheral IV Insertion Adult [OM.PC] Routine - Assessment/Plan Last 24 Hours: My Active Orders 10/24/18 23:25 Peripheral IV Care [RC] . DIRECTED Metoclopramide [Reglan] 10 mg IVPUSH ONETIME ONE Sodium Chloride 0.9% @ 999 MLS/HR (1000ml) Sodium Chloride 0.9% [Normal Saline] 1,000 ml IV .BOLUS Sodium Chloride 0.9% [Saline Flush] 10 ml FLUSH Q8HR PRN diphenhydrAMINE [Benadryl] 25 mg IVPUSH ONETIME ONE methylPREDNISolone Sod Succ [Solu-MEDROL] 125 mg IVPUSH ONETIME ONE Peripheral IV Insertion Adult [OM.PC] Routine Assessment:: Chronic migraine headache Plan: Follow-up with PCP
== END 2018-10-25 00:20 | disposition home or self-care (01) ==
LOC: KA.ED 23:00
DX: G43.909 Migraine, unspecified, not intractable, without status migrainosus (principal); F17.210 Nicotine dependence, cigarettes, uncomplicated; J45.909 Unspecified asthma, uncomplicated; E11.9 Type 2 diabetes mellitus without complications
CPT/HCPCS: 96361; 96374; 96375; 99283; J1200; J2765; J2930; J7030

== ENCOUNTER 2018-11-29 20:06 | Emergency (ER) | payer MEDICAID ==
[2018-11-29 20:19] VITALS: BP 113/81; PULSE 108
[2018-11-29] MEDS ORDERED: Sodium Chloride 0.9% 10 ML Syringe FLUSH PRN (20:19)
[2018-11-29] MEDS ORDERED: Metoclopramide 10 MG/2 ML SDV IVPUSH ONE (20:33)
[2018-11-29] MEDS ORDERED: methylPREDNISolone Sodium Succinate 125 MG/2 ML SDV IVPUSH ONE (20:33)
[2018-11-29] MEDS ORDERED: diphenhydrAMINE 50 MG/ML SDV IVPUSH ONE (20:33)
--- NOTE | 2018-11-29 20:34 | EDM.PDOC ---
ED HPI GENERAL MEDICAL PROBLEM - General Chief Complaint: Headache Stated Complaint: MIGRAINE Time Seen by Provider: 11/29/18 20:15 Source of Information: Reports: Patient History Limitations: Reports: No Limitations - History of Present Illness INITIAL COMMENTS - FREE TEXT/NARRATIVE: 27 YO WF presents to ER complaining of 6 day history of left sided headache which began behind her left eye with associated nausea and vomiting. Pt reports longstanding history of migraine headaches and reports this headache is similar in character and intensity. Pt reports she has taken Imitrex in the past without improvement. Pt has seen neurology in the past but isn't currently taking any medications for her migraines. Onset Date: 11/23/18 Duration: Day(s): (6) Location: Reports: Head Quality: Reports: Ache Severity: Moderate Improves with: Reports: None Worsens with: Reports: None Associated Symptoms: Reports: Nausea/Vomiting head Pain Score (Numeric/FACES): 9 - Related Data Allergies Allergy/AdvReac Type Severity Reaction Status Date / Time No Known Drug Allergies Allergy Cannot Verified 11/29/18 20:25 Remember Home Meds: Home Meds Albuterol Sulfate [Proair Hfa] 1 puff IH DAILY PRN 11/29/18 [History] Past Medical History HEENT History: Reports: Hard of Hearing, Impaired Vision Cardiovascular History: Reports: None Respiratory History: Reports: Asthma Gastrointestinal History: Reports: None Genitourinary History: Reports: None DRY BOX OPERATOR History: Reports: Other DRY BOX OPERATOR History: right ovarien rupture Musculoskeletal History: Reports: Other (See Below) Other Musculoskeletal History: scoliosis. 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 Neurological History: Reports: Cerebral Palsy, Concussion, CVA, Head Trauma, Migraines Psychiatric History: Reports: Psych Hospitalization(s), Schizophrenia Endocrine/Metabolic History: Reports: Diabetes, Type II Other Endocrine/Metabolic History: States does not take any medication at present time Hematologic History: Reports: None Immunologic History: Reports: None Dermatologic History: Reports: None - Past Surgical History Cardiovascular Surgical History: Reports: None Respiratory Surgical History: Reports: None GI Surgical History: Reports: None Female Surgical History: Reports: None Musculoskeletal Surgical History: Reports: Other (See Below) Other Musculoskeletal Surgeries/Procedures:: history of cerebral palsy and stroke at Dermatological Surgical History: Reports: None Social & Family History - Family History Family Medical History: Noncontributory - Tobacco Use Smoking Status *Q: Current Status Unknown - Caffeine Use Caffeine Use: Reports: Soda, Tea Caffeine Use Comment: did not ask ED ROS GENERAL - Review of Systems Review Of Systems: See Below Constitutional: Reports: No Symptoms HEENT: Reports: No Symptoms Respiratory: Reports: No Symptoms Cardiovascular: Reports: No Symptoms Endocrine: Reports: No Symptoms GI/Abdominal: Reports: Nausea, Vomiting : Reports: No Symptoms Musculoskeletal: Reports: No Symptoms Skin: Reports: No Symptoms Neurological: Reports: Headache Psychiatric: Reports: No Symptoms Hematologic/Lymphatic: Reports: No Symptoms Immunologic: Reports: No Symptoms - Physical Exam Exam: See Below Exam Limited By: No Limitations General Appearance: Alert, WD/WN, No Apparent Distress Eye Exam: Bilateral Eye: EOMI, PERRL Head Exam: Atraumatic, Normocephalic Neck: Normal Inspection, Supple, Non-Tender, Full Range of Motion Respiratory/Chest: No Respiratory Distress, Lungs Clear, Normal Breath Sounds, No Accessory Muscle Use, Chest Non-Tender Cardiovascular: Normal Peripheral Pulses, Regular Rate, Rhythm, No Edema, No Gallop, No JVD, No Murmur, No Rub GI/Abdominal: Normal Bowel Sounds, Soft, Non-Tender, No Organomegaly, No Distention, No Abnormal Bruit, No Mass Neuro Exam (Abbreviated): Alert, Oriented, CN II-XII Intact, Normal Cognition, Normal Gait, Normal Reflexes, No Motor/Sensory Deficits Back Exam: Normal Inspection, Full Range of Motion, NT Extremities: Normal Inspection, Normal Range of Motion, Non-Tender, No Pedal Edema, Normal Capillary Refill Psychiatric: Normal Affect, Normal Mood Skin Exam: Warm, Dry, Intact, Normal Color, No Rash Course - Vital Signs Last Recorded V/S: Last Vital Signs Temp 36.8 C 11/29/18 20:09 Pulse 108 H 11/29/18 20:09 Resp 20 11/29/18 20:09 BP 113/81 11/29/18 20:09 Pulse Ox 95 11/29/18 20:09 - Orders/Labs/Meds Orders: Active Orders 24 hr Category Date Time Status Peripheral IV Care [RC] . DIRECTED Care 11/29/18 20:19 Active Sodium Chloride 0.9% [Saline Flush] Med 11/29/18 20:19 Active 10 ml FLUSH Q8HR PRN Peripheral IV Insertion Adult [OM.PC] Routine Oth 11/29/18 20:19 Ordered Medication Orders Sodium Chloride (Saline Flush) 10 ml FLUSH Q8HR PRN PRN Reason: keep vein open Last Admin: 11/29/18 20:06 Dose: 10 ml Meds: Medications Generic Name Dose Route Start Last Admin Trade Name Freq PRN Reason Stop Dose Admin Sodium Chloride 10 ml 11/29/18 20:19 11/29/18 20:06 Saline Flush FLUSH 10 ml Q8HR PRN Administration keep vein open Discontinued Medications Generic Name Dose Route Start Last Admin Trade Name Freq PRN Reason Stop Dose Admin Diphenhydramine HCl 50 mg 11/29/18 20:33 11/29/18 20:46 Benadryl IVPUSH 11/29/18 20:34 50 mg ONETIME ONE Administration Methylprednisolone Sodium Succinate 125 mg 11/29/18 20:33 Solu-Medrol IVPUSH 11/29/18 20:34 ONETIME ONE Metoclopramide HCl 10 mg 11/29/18 20:33 11/29/18 20:44 Reglan IVPUSH 11/29/18 20:34 10 mg ONETIME ONE Administration Departure - Departure Time of Disposition: 21:16 Disposition: Home, Self-Care 01 Condition: Good Clinical Impression: Migraine - Discharge Information Instructions: Recurrent Migraine Headache, [id number] Referrals: Xochitl Infante, MARKETING DATABASE CONSULTANT [Primary Care Provider] - Forms: ED Department Discharge Additional Instructions: 1. discharge home 2. plenty of fluids 3. rest 4. follow up with PCP for further evaluation and treatment 5. return to ER for worsening symptoms - My Orders Last 24 Hours: My Active Orders 11/29/18 20:19 Peripheral IV Care [RC] . DIRECTED Sodium Chloride 0.9% [Saline Flush] 10 ml FLUSH Q8HR PRN Peripheral IV Insertion Adult [OM.PC] Routine - Assessment/Plan Last 24 Hours: My Active Orders 11/29/18 20:19 Peripheral IV Care [RC] . DIRECTED Sodium Chloride 0.9% [Saline Flush] 10 ml FLUSH Q8HR PRN Peripheral IV Insertion Adult [OM.PC] Routine Assessment:: 1. Migraine headache Plan: 1. discharge home 2. plenty of fluids 3. rest 4. follow up with PCP for further evaluation and treatment 5. return to ER for worsening symptoms
== END 2018-11-29 21:05 | disposition home or self-care (01) ==
LOC: KA.ED 20:06
DX: G43.909 Migraine, unspecified, not intractable, without status migrainosus (principal); J45.909 Unspecified asthma, uncomplicated; E11.9 Type 2 diabetes mellitus without complications; Z79.899 Other long term (current) drug therapy; Z86.73 Personal history of transient ischemic attack (TIA), and cerebral infarction without residual deficits
CPT/HCPCS: 96374; 96375; 99283; J1200; J2765; J2930

== ENCOUNTER 2019-05-18 01:03 | Emergency (ER) | payer MEDICAID ==
[2019-05-18] MEDS ORDERED: Metoclopramide 10 MG/2 ML SDV IVPUSH ONE (01:46)
[2019-05-18] MEDS ORDERED: Sodium Chloride 0.9% 1,000 ML IV ONE (01:46)
[2019-05-18] MEDS ORDERED: methylPREDNISolone Sodium Succinate 125 MG/2 ML SDV IVPUSH ONE (01:46)
[2019-05-18] MEDS ORDERED: Sodium Chloride 0.9% 10 ML Syringe FLUSH PRN (01:46)
[2019-05-18] MEDS ORDERED: diphenhydrAMINE 50 MG/ML SDV IVPUSH ONE (01:46)
--- NOTE | 2019-05-18 01:46 | EDM.PDOC ---
ED HPI GENERAL MEDICAL PROBLEM - General Chief Complaint: Abdominal Pain Stated Complaint: Abdominal pain, headache Time Seen by Provider: 05/18/19 01:25 Source of Information: Reports: Patient History Limitations: Reports: No Limitations - History of Present Illness INITIAL COMMENTS - FREE TEXT/NARRATIVE: 28 YO WF with PMH of chronic migraines presents to ER complaining of generalized headache with nausea/vomiting x 1 tonight. Pt also complaining of constipation and lower abdominal pain. Pt reports last bowel movement was 2 days ago. Pt reports passing gas. Pt states she's has lower abdominal pressure and dysuria x 3 days. Pt denies fever/chills, no back pain, no neck pain. Pt requesting medication for her headache. Duration: Day(s): (3) Location: Reports: Head, Abdomen Quality: Reports: Pressure Severity: Moderate Improves with: Reports: None Worsens with: Reports: None Associated Symptoms: Reports: No Other Symptoms Treatments DIRECTOR OF ASSESSMENT: Reports: Acetaminophen Abdomen Pain Score (Numeric/FACES): 7 - Related Data Allergies Allergy/AdvReac Type Severity Reaction Status Date / Time No Known Drug Allergies Allergy Cannot Verified 05/18/19 01:04 Remember Home Meds: Home Meds Albuterol Sulfate [Proair Hfa] 1 puff IH DAILY PRN 11/29/18 [History] Cephalexin [Keflex] 500 mg PO TID #21 capsule 05/18/19 [Rx] polyethylene glycoL 3350 [MiraLAX] 17 gm PO DAILY #10 packet 05/18/19 [Rx] Past Medical History HEENT History: Reports: Hard of Hearing, Impaired Vision Cardiovascular History: Reports: None Respiratory History: Reports: Asthma Gastrointestinal History: Reports: None Genitourinary History: Reports: None SPORT INTERNSHIP History: Reports: Other SPORT INTERNSHIP History: right ovarien rupture Musculoskeletal History: Reports: Other (See Below) Other Musculoskeletal History: scoliosis. 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 Neurological History: Reports: Cerebral Palsy, Concussion, CVA, Head Trauma, Migraines Psychiatric History: Reports: Psych Hospitalization(s), Schizophrenia Endocrine/Metabolic History: Reports: Diabetes, Type II Other Endocrine/Metabolic History: States does not take any medication at present time Hematologic History: Reports: None Immunologic History: Reports: None Dermatologic History: Reports: None - Past Surgical History Cardiovascular Surgical History: Reports: None Respiratory Surgical History: Reports: None GI Surgical History: Reports: None Female Surgical History: Reports: None Musculoskeletal Surgical History: Reports: Other (See Below) Other Musculoskeletal Surgeries/Procedures:: history of cerebral palsy and stroke at Dermatological Surgical History: Reports: None Social & Family History - Family History Family Medical History: Noncontributory - Tobacco Use Smoking Status *Q: Current Every Day Smoker Years of Tobacco use: 13 Packs/Tins Daily: 1 Second Hand Smoke Exposure: Yes - Caffeine Use Caffeine Use: Reports: Soda Caffeine Use Comment: did not ask - Recreational Drug Use Recreational Drug Use: Yes Drug Use in Last 12 Months: Yes Recreational Drug Type: Reports: Other (see below) Other Recreational Drug Type: CBD ED ROS GENERAL - Review of Systems Review Of Systems: See Below Constitutional: Reports: Decreased Appetite HEENT: Reports: No Symptoms Respiratory: Reports: No Symptoms Cardiovascular: Reports: No Symptoms Endocrine: Reports: No Symptoms GI/Abdominal: Reports: Abdominal Pain, Constipation, Nausea, Vomiting : Reports: Dysuria Musculoskeletal: Reports: No Symptoms Skin: Reports: No Symptoms Neurological: Reports: No Symptoms Psychiatric: Reports: No Symptoms Hematologic/Lymphatic: Reports: No Symptoms Immunologic: Reports: No Symptoms ED EXAM, RENAL/ - Physical Exam Exam: See Below Exam Limited By: No Limitations General Appearance: Alert, WD/WN, No Apparent Distress Head: Atraumatic, Normocephalic Neck: Normal Inspection, Supple, Non-Tender, Full Range of Motion Respiratory/Chest: No Respiratory Distress, Lungs Clear, Normal Breath Sounds, No Accessory Muscle Use, Chest Non-Tender Cardiovascular: Normal Peripheral Pulses, Regular Rate, Rhythm, No Edema, No Gallop, No JVD, No Murmur, No Rub GI/Abdominal: Normal Bowel Sounds, Soft, Non-Tender, No Organomegaly, No Distention, No Abnormal Bruit, No Mass Back Exam: Normal Inspection, Full Range of Motion, NT Extremities: Normal Inspection, Normal Range of Motion, Non-Tender, Normal Capillary Refill, No Pedal Edema Neurological: Alert, Oriented, CN II-XII Intact, Normal Cognition, Normal Gait, Normal Reflexes, No Motor/Sensory Deficits Psychiatric: Normal Affect, Normal Mood Skin Exam: Warm, Dry, Intact, Normal Color, No Rash Lymphatic: No Adenopathy Course - Vital Signs Last Recorded V/S: Last Vital Signs Temp 36.8 C 05/18/19 01:11 Pulse 134 H 05/18/19 01:11 Resp 18 05/18/19 01:11 BP 119/81 05/18/19 01:11 Pulse Ox 99 05/18/19 01:11 - Orders/Labs/Meds Orders: Active Orders 24 hr Category Date Time Status Peripheral IV Care [RC] . DIRECTED Care 05/18/19 01:46 Ordered Sodium Chloride 0.9% [Saline Flush] Med 05/18/19 01:46 Ordered 10 ml FLUSH Q8HR PRN cephALEXin [Keflex] Med 05/18/19 02:48 Once 1,500 mg PO ONETIME ONE Peripheral IV Insertion Adult [OM.PC] Routine Oth 05/18/19 01:46 Ordered Medication Orders Cephalexin (Keflex) 1,500 mg PO ONETIME ONE Stop: 05/18/19 02:49 Sodium Chloride (Saline Flush) 10 ml FLUSH Q8HR PRN PRN Reason: keep vein open Labs: Laboratory Tests 05/18/19 Range/Units 01:25 Specimen Type Urinvoid Urine Color Yellow (YELLOW) Urine Appearance Slightly cloudy H (CLEAR) Urine pH 5.5 (5.0-9.0) Ur Specific [place] 1.020 (1.005-1.030) Urine Protein Negative (NEGATIVE) mg/dL Urine Glucose (UA) Negative (NEGATIVE) mg/dL Urine Ketones 15 H (NEGATIVE) mg/dL Urine Occult Blood Moderate H (NEGATIVE) Urine Nitrite Negative (NEGATIVE) Urine Bilirubin Negative (NEGATIVE) Urine Urobilinogen 0.2 (0.2-1.0) E.U./dL Ur Leukocyte Esterase Negative (NEGATIVE) Urine RBC 0-5 (0-5) /HPF Urine WBC 0-5 (0-5) /HPF Ur Epithelial Cells Moderate H /LPF Urine Bacteria Few (NONE TO FEW) /HPF Meds: Medications Generic Name Dose Route Start Last Admin Trade Name Freq PRN Reason Stop Dose Admin Cephalexin 1,500 mg 05/18/19 02:48 Keflex PO 05/18/19 02:49 ONETIME ONE Sodium Chloride 10 ml 05/18/19 01:46 Saline Flush FLUSH Q8HR PRN keep vein open Discontinued Medications Generic Name Dose Route Start Last Admin Trade Name Freq PRN Reason Stop Dose Admin Diphenhydramine HCl 50 mg 05/18/19 01:46 05/18/19 02:03 Benadryl IVPUSH 05/18/19 01:47 50 mg ONETIME ONE Administration Sodium Chloride 1,000 mls @ 999 mls/hr 05/18/19 01:46 05/18/19 02:02 Normal Saline IV 05/18/19 02:46 999 mls/hr .BOLUS ONE Administration Methylprednisolone Sodium Succinate 125 mg 05/18/19 01:46 05/18/19 02:03 Solu-Medrol IVPUSH 05/18/19 01:47 125 mg ONETIME ONE Administration Metoclopramide HCl 10 mg 05/18/19 01:46 05/18/19 02:09 Reglan IVPUSH 05/18/19 01:47 10 mg ONETIME ONE Administration - Radiology Interpretation Free Text/Narrative:: Headache improved. Pt alert and oriented x 4 and in NAD. Tolerating PO fluids without emesis Departure - Departure Time of Disposition: 02:50 Disposition: Home, Self-Care 01 Clinical Impression: Migraine UTI (urinary tract infection) Qualifiers: Urinary tract infection type: acute cystitis Hematuria presence: without hematuria Qualified Code(s): N30.00 - Acute cystitis without hematuria Constipation Qualifiers: Constipation type: slow transit constipation Qualified Code(s): K59.01 - Slow transit constipation - Discharge Information Prescriptions: Cephalexin [Keflex] 500 mg PO TID #21 capsule polyethylene glycoL 3350 [MiraLAX] 17 gm PO DAILY #10 packet Instructions: Recurrent Migraine Headache, Constipation, Adult, Urinary Tract Infection, Adult Referrals: Noemi Rogers MD [Physician] - Forms: ED Department Discharge Additional Instructions: 1. Discharge home 2. keflex 500mg every 8 hours x 7 days for UTI 3. miralax for constipation- 1 packet dissolved in water or juice everyday until normal regular bowel movements 4. follow up with PCP for further evaluation and treatment 5. return to ER for worsening symptoms Sepsis Event Note - Evaluation Sepsis Screening Result: No Definite Risk - Focused Exam Vital Signs: Vital Signs Temp Pulse Resp BP Pulse Ox 05/18/19 01:11 36.8 C 134 H 18 119/81 99 Date Exam was Performed: 05/18/19 Time Exam was Performed: 02:49 - My Orders Last 24 Hours: My Active Orders 05/18/19 01:46 Peripheral IV Care [RC] . DIRECTED Sodium Chloride 0.9% [Saline Flush] 10 ml FLUSH Q8HR PRN Peripheral IV Insertion Adult [OM.PC] Routine 05/18/19 02:48 cephALEXin [Keflex] 1,500 mg PO ONETIME ONE - Assessment/Plan Last 24 Hours: My Active Orders 05/18/19 01:46 Peripheral IV Care [RC] . DIRECTED Sodium Chloride 0.9% [Saline Flush] 10 ml FLUSH Q8HR PRN Peripheral IV Insertion Adult [OM.PC] Routine 05/18/19 02:48 cephALEXin [Keflex] 1,500 mg PO ONETIME ONE Assessment:: 1. Chronic/recurrent migraine headaches 2. UTI 3. constipation Plan: 1. Discharge home 2. keflex 500mg every 8 hours x 7 days for UTI 3. miralax for constipation- 1 packet dissolved in water or juice everyday until normal regular bowel movements 4. follow up with PCP for further evaluation and treatment 5. return to ER for worsening symptoms
[2019-05-18] MEDS ORDERED: Cephalexin 250 MG Cap PO ONE (02:48)
[2019-05-18 03:12] VITALS: BP 124/72; PULSE 96
== END 2019-05-18 03:00 | disposition home or self-care (01) ==
LOC: KA.ED 01:03
DX: G43.909 Migraine, unspecified, not intractable, without status migrainosus (principal); K59.01 Slow transit constipation; N30.00 Acute cystitis without hematuria; J45.909 Unspecified asthma, uncomplicated; M41.9 Scoliosis, unspecified; E11.9 Type 2 diabetes mellitus without complications; G80.9 Cerebral palsy, unspecified; F17.210 Nicotine dependence, cigarettes, uncomplicated; Z86.73 Personal history of transient ischemic attack (TIA), and cerebral infarction without residual deficits
CPT/HCPCS: 81001; 96361; 96374; 96375; 99284-25; A9270-GY; J1200; J2765; J2930; J7030

== ENCOUNTER 2019-07-18 10:35 | Emergency (ER) | payer MEDICAID ==
[2019-07-18 10:45] VITALS: BP 123/80; PULSE 90
[2019-07-18] MEDS ORDERED: Metoclopramide Oral Soln 10 MG/10 ML UD Cup PO ONE (11:11)
--- NOTE | 2019-07-18 11:18 | EDM.PDOC ---
ED HPI GENERAL MEDICAL PROBLEM - General Chief Complaint: General Stated Complaint: MIGRAINE/WEAK Time Seen by Provider: 07/18/19 11:00 Source of Information: Reports: Patient History Limitations: Reports: Uncooperative - History of Present Illness INITIAL COMMENTS - FREE TEXT/NARRATIVE: 28-year-old female presents emergency room with the complaints of generalized headache with radiation to her right eye. She reports she's had a headache for over a week. She's been taken ibuprofen without relief. She's appearance and some nausea and gagging over the last 4 hours. She is quite irritable upon the visit didn't immediately starts becoming verbally demanding to me. I redirected the patient that I'm here to care for her but have to ask her questions in order for me to provide appropriate treatment. She seemed to be redirectable to my questioning. She's had a long history of headaches dating back to her teenage years. She states that she has taken Imitrex in the past but these do not work for her and are no longer provided. She denies any shortness of breath chest pain or abdominal pain. Her last visit to the emergency room was back in April which she was also treated for headache symptoms. She denies any generalized motor weakness or difficulty with speech. No gait disturbance. She is followed by Xochitl infante SUSTAINABILITY EXECUTIVE DIRECTOR at [facility]. Onset Date: 07/11/19 Duration: Day(s):, Constant Location: Reports: Head Quality: Reports: Ache Severity: Moderate Improves with: Reports: Medication Worsens with: Reports: None Associated Symptoms: Reports: Headaches, Nausea/Vomiting. Denies: Cough, Fever/ Chills, Shortness of Breath Treatments WRAPPER SHEETER: Reports: NSAIDS Headache Pain Score (Numeric/FACES): 10 - Related Data Allergies Allergy/AdvReac Type Severity Reaction Status Date / Time No Known Drug Allergies Allergy Cannot Verified 07/18/19 10:46 Remember Home Meds: Home Meds Albuterol Sulfate [Proair Hfa] 1 puff IH DAILY PRN 11/29/18 [History] busPIRone HCl [Buspirone HCl] 15 mg PO DAILY 07/18/19 [History] predniSONE [Prednisone] 10 mg PO DAILY 07/18/19 [History] Past Medical History HEENT History: Reports: Hard of Hearing, Impaired Vision Cardiovascular History: Reports: None Respiratory History: Reports: Asthma Gastrointestinal History: Reports: None Genitourinary History: Reports: None BLENDER OPERATOR History: Reports: Other BLENDER OPERATOR History: right ovarien rupture Musculoskeletal History: Reports: Other (See Below) Other Musculoskeletal History: scoliosis. 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 Neurological History: Reports: Cerebral Palsy, Concussion, CVA, Head Trauma, Migraines Psychiatric History: Reports: Psych Hospitalization(s), Schizophrenia Endocrine/Metabolic History: Reports: Diabetes, Type II Other Endocrine/Metabolic History: States does not take any medication at present time Hematologic History: Reports: None Immunologic History: Reports: None Dermatologic History: Reports: None - Past Surgical History Cardiovascular Surgical History: Reports: None Respiratory Surgical History: Reports: None GI Surgical History: Reports: None Female Surgical History: Reports: None Musculoskeletal Surgical History: Reports: Other (See Below) Other Musculoskeletal Surgeries/Procedures:: history of cerebral palsy and stroke at Dermatological Surgical History: Reports: None Social & Family History - Family History Family Medical History: Noncontributory - Caffeine Use Caffeine Use: Reports: Soda Caffeine Use Comment: did not ask ED ROS GENERAL - Review of Systems Review Of Systems: See Below Constitutional: Reports: No Symptoms HEENT: Reports: Ear Pain, Eye Pain. Denies: Vertigo, Vision Change Respiratory: Denies: Shortness of Breath, Cough Cardiovascular: Denies: Chest Pain, Blood Pressure Problem Endocrine: Reports: No Symptoms GI/Abdominal: Reports: Nausea : Reports: No Symptoms Musculoskeletal: Reports: No Symptoms Skin: Reports: No Symptoms Neurological: Reports: Headache. Denies: Numbness, Seizure, Trouble Speaking, Difficulty Walking, Change in Speech, Gait Disturbance Psychiatric: Reports: Agitation Hematologic/Lymphatic: Reports: No Symptoms Immunologic: Reports: No Symptoms ED EXAM, GENERAL - Physical Exam Exam: See Below Exam Limited By: No Limitations General Appearance: Alert, WD/WN, Moderate Distress Eye Exam: Bilateral Eye: EOMI, PERRL Ears: Normal External Exam, Normal Canal, Hearing Grossly Normal, Normal TMs Nose: Normal Inspection Throat/Mouth: Normal Inspection, Normal Oropharynx, Normal Voice, No Airway Compromise Head: Atraumatic, Normocephalic Neck: Normal Inspection, Supple, Non-Tender, Full Range of Motion. No: Lymphadenopathy (L), Lymphadenopathy (R) Respiratory/Chest: No Respiratory Distress, Lungs Clear, Normal Breath Sounds Cardiovascular: Regular Rate, Rhythm, No Murmur Peripheral Pulses: 2+: Carotid (L), Carotid (R) GI/Abdominal: Soft, Non-Tender Back Exam: Normal Inspection Extremities: Normal Inspection Neurological: Alert, Oriented, No Motor/Sensory Deficits Psychiatric: Tearful Skin Exam: Warm, Dry, Intact, Normal Color, No Rash Lymphatic: No Adenopathy Course - Vital Signs Last Recorded V/S: Last Vital Signs Temp 98.2 F 07/18/19 10:42 Pulse 90 07/18/19 10:42 Resp 18 07/18/19 10:42 BP 123/80 07/18/19 10:42 Pulse Ox 96 07/18/19 10:42 - Orders/Labs/Meds Meds: Medications Discontinued Medications Generic Name Dose Route Start Last Admin Trade Name Ramiro PRN Reason Stop Dose Admin Diphenhydramine HCl 50 mg 07/18/19 11:09 07/18/19 11:21 Benadryl IM 07/18/19 11:10 50 mg ONETIME ONE Administration Ketorolac Tromethamine 30 mg 07/18/19 11:09 07/18/19 11:21 Toradol IM 07/18/19 11:10 30 mg ONETIME ONE Administration Metoclopramide HCl 10 mg 07/18/19 11:25 07/18/19 11:33 Reglan PO 07/18/19 11:26 10 mg ONETIME ONE Administration - Re-Assessments/Exams Free Text/Narrative Re-Assessment/Exam: 07/18/19 12:02 Patient states that her headache has now improved to a 6 out of 10 and feels that she can manage this now at home. Nausea has improved. Departure - Departure Time of Disposition: 11:59 Disposition: Home, Self-Care 01 Condition: Fair Clinical Impression: Headache around the eyes - Discharge Information Instructions: General Headache Without Cause, [id number] Referrals: Xochitl Infante SUSTAINABILITY EXECUTIVE DIRECTOR [Primary Care Provider] - Forms: ED Department Discharge Sepsis Event Note - Evaluation Sepsis Screening Result: No Definite Risk - Focused Exam Vital Signs: Vital Signs Temp Pulse Resp BP Pulse Ox 07/18/19 10:42 98.2 F 90 18 123/80 96 Date Exam was Performed: 07/18/19 Time Exam was Performed: 12:02 - Assessment/Plan Assessment:: Generalized headache Plan: 1. Rest 2. Hydration 3. Tylenol or ibuprofen as needed for headaches. 4. Follow-up with your primary care if headaches recur.
[2019-07-18] MEDS: diphenhydrAMINE 50 MG/ML SDV IM ONE (11:21)
[2019-07-18] MEDS: Ketorolac 30 MG/ML SDV IM ONE (11:21)
[2019-07-18] MEDS: Metoclopramide 10 MG Tab PO ONE (11:33)
== END 2019-07-18 12:05 | disposition home or self-care (01) ==
LOC: KA.ED 10:35
DX: R51 Headache (principal); J45.909 Unspecified asthma, uncomplicated; E11.9 Type 2 diabetes mellitus without complications; Z86.73 Personal history of transient ischemic attack (TIA), and cerebral infarction without residual deficits; Z79.899 Other long term (current) drug therapy
CPT/HCPCS: 96372; 99283; A9270-GY; J1200; J1885

== ENCOUNTER 2020-03-23 08:40 | Emergency (ER) | payer MEDICAID ==
[2020-03-23] MEDS: Sodium Chloride 0.9% 1,000 ML IV ONE (08:54)
[2020-03-23] MEDS: Ondansetron 4 MG/2 ML SDV IVPUSH ONE (08:54)
[2020-03-23] MEDS: diphenhydrAMINE 50 MG/ML SDV IVPUSH ONE (08:59)
[2020-03-23] MEDS: Ketorolac 30 MG/ML SDV IVPUSH ONE (08:59)
[2020-03-23] MEDS: Sodium Chloride 0.9% 10 ML Syringe FLUSH PRN (09:00)
[2020-03-23 09:10] VITALS: BP 115/73; PULSE 90
--- NOTE | 2020-03-23 10:07 | EDM.PDOC ---
ED HPI GENERAL MEDICAL PROBLEM - General Chief Complaint: General Stated Complaint: NAUSEA Time Seen by Provider: 03/23/20 09:14 Source of Information: Reports: Patient History Limitations: Reports: No Limitations - History of Present Illness INITIAL COMMENTS - FREE TEXT/NARRATIVE: Patient presents with migraine headache and vomiting. The headache started last night. She thought it would go away overnight with Tylenol but this morning was no better and she vomited. She hasn't found any triptans that work so just comes to ER when she has a bad migraine that won't go away. This feels very typical for her migraines she says. 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 Neurological History: Reports: Cerebral Palsy, Concussion, CVA, Head Trauma, Migraines Psychiatric History: Reports: Psych Hospitalization(s), Schizophrenia Endocrine/Metabolic History: Reports: Diabetes, Type II Other Endocrine/Metabolic History: States does not take any medication at present time Hematologic History: Reports: None Immunologic History: Reports: None Dermatologic History: Reports: None - Past Surgical History HEENT Surgical History: Reports: None Cardiovascular Surgical History: Reports: None Respiratory Surgical History: Reports: None GI Surgical History: Reports: None Female Surgical History: Reports: None Neurological Surgical History: Reports: Scoliosis Musculoskeletal Surgical History: Reports: Other (See Below) Other Musculoskeletal Surgeries/Procedures:: history of cerebral palsy and stroke at Dermatological Surgical History: Reports: None Social & Family History - Family History Family Medical History: No Pertinent Family History - Tobacco Use Tobacco Use Status *Q: Current Every Day Tobacco User Years of Tobacco use: 12 Packs/Tins Daily: 0.5 - Caffeine Use Caffeine Use: Reports: Coffee Caffeine Use Comment: did not ask - Recreational Drug Use Recreational Drug Use: No ED ROS GENERAL - Review of Systems Review Of Systems: See Below Constitutional: Denies: Fever, Chills, Weakness HEENT: Denies: Ear Pain, Throat Pain, Vision Change Respiratory: Denies: Shortness of Breath, Cough Cardiovascular: Denies: Chest Pain, Lightheadedness, Syncope GI/Abdominal: Reports: Nausea, Vomiting. Denies: Abdominal Pain, Diarrhea : Denies: Dysuria, Flank Pain Musculoskeletal: Denies: Neck Pain, Shoulder Pain, Arm Pain, Back Pain, Hand Pain Skin: Denies: Cyanosis, Jaundice, Mottled, Pallor, Diaphoresis Neurological: Reports: Headache. Denies: Confusion, Dizziness, Numbness, Paresthesia, Seizure, Syncope, Trouble Speaking, Difficulty Walking Psychiatric: Denies: Agitation, Anxiety ED EXAM, GENERAL - Physical Exam Exam: See Below Exam Limited By: No Limitations General Appearance: Alert, WD/WN, No Apparent Distress Eye Exam: Bilateral Eye: EOMI, Normal Inspection, PERRL Ears: Normal External Exam, Hearing Grossly Normal Nose: Normal Inspection, No Blood Throat/Mouth: Normal Inspection, Normal Lips, Normal Voice Head: Atraumatic, Normocephalic Neck: Normal Inspection, Full Range of Motion Respiratory/Chest: No Respiratory Distress, Lungs Clear, Normal Breath Sounds, No Accessory Muscle Use Cardiovascular: Regular Rate, Rhythm, No Murmur Back Exam: Normal Inspection, Full Range of Motion. No: CVA Tenderness (L), CVA Tenderness (R) Extremities: Normal Inspection, Normal Range of Motion Neurological: Alert, Oriented, CN II-XII Intact, Normal Cognition, No Motor/Sensory Deficits Psychiatric: Normal Affect, Normal Mood Skin Exam: Warm, Dry, Intact, Normal Color, No Rash Course - Vital Signs Last Recorded V/S: Last Vital Signs Temp 97.5 F 03/23/20 09:09 Pulse 90 03/23/20 09:09 Resp 16 03/23/20 09:09 BP 115/73 03/23/20 09:09 Pulse Ox 97 03/23/20 09:09 - Orders/Labs/Meds Orders: Active Orders 24 hr Category Date Time Status Peripheral IV Care [RC] . DIRECTED Care 03/23/20 08:48 Active Sodium Chloride 0.9% [Saline Flush] Med 03/23/20 08:48 Active 10 ml FLUSH Q8HR PRN Peripheral IV Insertion Adult [OM.PC] Routine Oth 03/23/20 08:48 Ordered Medication Orders Sodium Chloride (Saline Flush) 10 ml FLUSH Q8HR PRN PRN Reason: keep vein open Last Admin: 03/23/20 09:00 Dose: 10 ml Documented by: XAVI Meds: Medications Generic Name Dose Route Start Last Admin Trade Name Freq PRN Reason Stop Dose Admin Sodium Chloride 10 ml 03/23/20 08:48 03/23/20 09:00 Saline Flush FLUSH 10 ml Q8HR PRN Administration keep vein open Discontinued Medications Generic Name Dose Route Start Last Admin Trade Name Freq PRN Reason Stop Dose Admin Diphenhydramine HCl 50 mg 03/23/20 08:48 03/23/20 08:59 Benadryl IVPUSH 03/23/20 08:49 50 mg ONETIME ONE Administration Sodium Chloride 1,000 mls @ 999 mls/hr 03/23/20 08:48 03/23/20 08:54 Normal Saline IV 03/23/20 09:48 999 mls/hr .BOLUS ONE Administration Ketorolac Tromethamine 30 mg 03/23/20 08:47 03/23/20 08:59 Toradol IVPUSH 03/23/20 08:48 30 mg ONETIME ONE Administration Ondansetron HCl 4 mg 03/23/20 08:48 03/23/20 08:54 Zofran IVPUSH 03/23/20 08:49 4 mg ONETIME ONE Administration - Re-Assessments/Exams Free Text/Narrative Re-Assessment/Exam: 03/23/20 10:07 Discussed findings and treatment plan. Patient is feeling much better and ready to go home and sleep. She is discharged to home in stable condition. Departure - Departure Time of Disposition: 10:02 Disposition: Home, Self-Care 01 Condition: Good Clinical Impression: Migraine Qualifiers: Migraine type: unspecified Status migrainosus presence: without status migrainosus Intractability: intractable Qualified Code(s): G43.919 - Migraine, unspecified, intractable, without status migrainosus - Discharge Information Referrals: Danita Infante TRAIN CONTROLLER [Primary Care Provider] - Additional Instructions: Go home and sleep for several hours. Drink 8 cups of water daily. Follow up with your PCP as needed. Sepsis Event Note (ED) - Evaluation Sepsis Screening Result: No Definite Risk - Focused Exam Vital Signs: Vital Signs Temp Pulse Resp BP Pulse Ox 03/23/20 09:09 97.5 F 90 16 115/73 97 - My Orders Last 24 Hours: My Active Orders 03/23/20 08:48 Peripheral IV Care [RC] . DIRECTED Sodium Chloride 0.9% [Saline Flush] 10 ml FLUSH Q8HR PRN Peripheral IV Insertion Adult [OM.PC] Routine - Assessment/Plan Last 24 Hours: My Active Orders 03/23/20 08:48 Peripheral IV Care [RC] . DIRECTED Sodium Chloride 0.9% [Saline Flush] 10 ml FLUSH Q8HR PRN Peripheral IV Insertion Adult [OM.PC] Routine
== END 2020-03-23 10:10 | disposition home or self-care (01) ==
LOC: KA.ED 08:40
DX: G43.919 Migraine, unspecified, intractable, without status migrainosus (principal); J45.909 Unspecified asthma, uncomplicated; E11.9 Type 2 diabetes mellitus without complications; F17.210 Nicotine dependence, cigarettes, uncomplicated
CPT/HCPCS: 96374; 96375; 99283; J1200; J1885; J2405; J7030

== ENCOUNTER 2020-07-02 14:38 | Emergency (ER) | payer MEDICAID ==
[2020-07-02] MEDS ORDERED: Sodium Chloride 0.9% 1,000 ML ONE (14:51)
[2020-07-02 15:14] VITALS: BP 109/68; PULSE 102
[2020-07-02] MEDS ORDERED: Ketorolac 30 MG/ML SDV IVPUSH ONE (15:15)
[2020-07-02] MEDS ORDERED: diphenhydrAMINE 50 MG/ML SDV IVPUSH ONE (15:15)
[2020-07-02] MEDS ORDERED: Ondansetron 4 MG/2 ML SDV IVPUSH ONE (15:16)
[2020-07-02] MEDS ORDERED: Sodium Chloride 0.9% 1,000 ML IV ONE (15:33)
--- NOTE | 2020-07-02 17:22 | EDM.PDOC ---
ED HPI GENERAL MEDICAL PROBLEM - General Chief Complaint: Headache Stated Complaint: MIRGAINE Time Seen by Provider: 07/02/20 14:45 Source of Information: Reports: Patient History Limitations: Reports: No Limitations - History of Present Illness INITIAL COMMENTS - FREE TEXT/NARRATIVE: 29-year-old to the emergency room with complaints of migraine headache. She has a long history of migraine headaches. She reports that her headache is similar to previous migraine headaches she has had. She has light sensitivity and pulsating around her left eye. She mainly takes Tylenol and [id number] remedies for her headaches. She has tried prescription meds without relief. She has been on Imitrex in the past. She gets headaches frequently sometimes daily. She has been seen in the emergency room in the past for her migraines. She denies any change in speech or motor weaknesses or gait disturbance. Her primary care provider is Dainta Infante NP. She has cerebral palsy and weakness on her right side both upper and lower extremity from . Onset: Today Duration: Hour(s):, Recurring Location: Reports: Head Quality: Reports: Ache Severity: Severe Improves with: Reports: None Worsens with: Reports: Other (light sensitivity) Associated Symptoms: Reports: No Other Symptoms Treatments ROAD GANG SUPERVISOR: Reports: Acetaminophen Headache Pain Score (Numeric/FACES): 10 - Related Data Allergies Allergy/AdvReac Type Severity Reaction Status Date / Time No Known Drug Allergies Allergy Cannot Verified 07/02/20 15:23 Remember Home Meds: Home Meds Citalopram Hydrobromide [Celexa] 20 mg PO DAILY 03/23/20 [History] Past Medical History HEENT History: Reports: Hard of Hearing, Impaired Vision Cardiovascular History: Reports: None Respiratory History: Reports: Asthma Gastrointestinal History: Reports: None Genitourinary History: Reports: None LUMBER TRIMMER History: Reports: Other LUMBER TRIMMER History: right ovarien rupture Musculoskeletal History: Reports: Other (See Below) Other Musculoskeletal History: scoliosis. 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 Neurological History: Reports: Cerebral Palsy, Concussion, CVA, Head Trauma, Migraines Psychiatric History: Reports: Psych Hospitalization(s), Schizophrenia Endocrine/Metabolic History: Reports: Diabetes, Type II Other Endocrine/Metabolic History: States does not take any medication at present time Hematologic History: Reports: None Immunologic History: Reports: None Dermatologic History: Reports: None - Past Surgical History HEENT Surgical History: Reports: None Cardiovascular Surgical History: Reports: None Respiratory Surgical History: Reports: None GI Surgical History: Reports: None Female Surgical History: Reports: None Neurological Surgical History: Reports: Scoliosis Musculoskeletal Surgical History: Reports: Other (See Below) Other Musculoskeletal Surgeries/Procedures:: history of cerebral palsy and stroke at Dermatological Surgical History: Reports: None Social & Family History - Family History Family Medical History: No Pertinent Family History - Tobacco Use Tobacco Use Status *Q: Current Every Day Tobacco User Years of Tobacco use: 10 Packs/Tins Daily: 0.5 Used Tobacco, but Quit: No - Caffeine Use Caffeine Use: Reports: Coffee Caffeine Use Comment: did not ask ED ROS GENERAL - Review of Systems Review Of Systems: See Below Constitutional: Reports: No Symptoms HEENT: Reports: Eye Pain, Glasses, Other (headache). Denies: Vertigo Respiratory: Reports: No Symptoms Cardiovascular: Reports: No Symptoms Endocrine: Reports: No Symptoms GI/Abdominal: Reports: No Symptoms : Reports: No Symptoms Musculoskeletal: Reports: No Symptoms Skin: Reports: No Symptoms Neurological: Reports: Headache, Pre-Existing Deficit (Upper and right lower extremity, cerebral palsy). Denies: Trouble Speaking, Change in Speech Psychiatric: Reports: Depression Hematologic/Lymphatic: Reports: No Symptoms Immunologic: Reports: No Symptoms - Physical Exam Exam: See Below Exam Limited By: No Limitations General Appearance: Alert, Mild Distress, Other (Wearing sunglasses upon arrival) Eye Exam: Bilateral Eye: EOMI, PERRL Ears: Hearing Grossly Normal Nose: Normal Inspection Throat/Mouth: Normal Inspection, Normal Voice Head Exam: Atraumatic, Normocephalic Neck: Normal Inspection, Supple Respiratory/Chest: No Respiratory Distress, Lungs Clear Cardiovascular: Regular Rate, Rhythm GI/Abdominal: Soft, Non-Tender Neuro Exam (Abbreviated): Alert, Oriented, Sensory/Motor Deficit (Right upper and lower extremity history of cerebral palsy) Back Exam: Normal Inspection Extremities: Other (Right upper extremity flexion contracture right wrist) Psychiatric: Depressed Mood, Flat Affect Skin Exam: Warm, Dry, Intact, Normal Color, No Rash Course - Vital Signs Last Recorded V/S: Last Vital Signs Temp 96.8 F L 07/02/20 15:00 Pulse 102 H 07/02/20 15:00 Resp 18 03/12/21 15:00 BP 109/68 07/02/20 15:00 Pulse Ox 99 07/02/20 15:00 - Orders/Labs/Meds Meds: Medications Discontinued Medications Generic Name Dose Route Start Last Admin Trade Name Ramiro PRN Reason Stop Dose Admin Diphenhydramine HCl 50 mg 07/02/20 15:15 07/02/20 15:33 Diphenhydramine 50 Mg/Ml Sdv IVPUSH 07/02/20 15:16 50 mg ONETIME ONE Administration Sodium Chloride Confirm 07/02/20 14:51 07/02/20 15:41 Normal Saline Administered 07/02/20 14:52 Not Given Dose 1,000 mls @ as directed .ROUTE .STK-MED ONE Sodium Chloride 1,000 mls @ 999 mls/hr 07/02/20 15:33 07/02/20 15:15 Normal Saline IV 07/02/20 16:33 999 mls/hr .BOLUS ONE Administration Ketorolac Tromethamine 30 mg 07/02/20 15:15 07/02/20 15:29 Ketorolac 30 Mg/Ml Sdv IVPUSH 07/02/20 15:16 30 mg ONETIME ONE Administration Ondansetron HCl 4 mg 07/02/20 15:16 07/02/20 15:25 Ondansetron 4 Mg/2 Ml Sdv IVPUSH 07/02/20 15:17 4 mg ONETIME ONE Administration - Re-Assessments/Exams Free Text/Narrative Re-Assessment/Exam: 07/02/20 17:24 Was given 1 L of fluids, 30 mg of Toradol, 50 mg of IV Benadryl, Zofran 4 mg. Over the hour she reports that her headache improved to a 4 out of 10. Her headache upon arrival was a 10 out of 10. She is feeling much better and feels she can go home. Departure - Departure Time of Disposition: 17:00 Disposition: Home, Self-Care 01 Condition: Good Clinical Impression: Migraine aura without headache - Discharge Information Instructions: Recurrent Migraine Headache, Occipital Neuralgia Referrals: Danita Infante NP [Primary Care Provider] - Forms: ED Department Discharge Care Plan Goals: 1. F/u with Primary Care for management of your migraines. Recommend Neurology consult for possible other options as previous management has not helped. 2. Note for off work today. 3. Return to ER if symptoms of your migraine change. Sepsis Event Note (ED) - Evaluation Sepsis Screening Result: No Definite Risk - Focused Exam Vital Signs: Vital Signs Temp Pulse Resp BP Pulse Ox 07/02/20 15:00 96.8 F L 102 H 18 109/68 99 - Assessment/Plan Assessment:: Migraine Plan: 1. F/u with Primary Care for management of your migraines. Recommend Neurology consult for possible other options as previous management has not helped. 2. Note for off work today. 3. Return to ER if symptoms of your migraine change.
== END 2020-07-02 16:35 | disposition home or self-care (01) ==
LOC: KA.ED 14:38
DX: G43.909 Migraine, unspecified, not intractable, without status migrainosus (principal); J45.909 Unspecified asthma, uncomplicated; E11.9 Type 2 diabetes mellitus without complications; G80.9 Cerebral palsy, unspecified; M41.9 Scoliosis, unspecified; Z86.73 Personal history of transient ischemic attack (TIA), and cerebral infarction without residual deficits; Z72.0 Tobacco use; Z79.899 Other long term (current) drug therapy
CPT/HCPCS: 96374; 96375; 99283; 99283-25; J1200; J1885; J2405; J7030

== ENCOUNTER 2022-11-29 10:14 | Emergency (ER) | payer OTHER, MEDICAID ==
[2022-11-29 12:03] VITALS: BP 125/87; PULSE 110
== END 2022-11-29 12:00 | disposition home or self-care (01) ==
LOC: KA.ED 10:14
DX: S90.32XA Contusion of left foot, initial encounter (principal); L03.116 Cellulitis of left lower limb; F17.210 Nicotine dependence, cigarettes, uncomplicated; E11.9 Type 2 diabetes mellitus without complications; J45.909 Unspecified asthma, uncomplicated; Z86.73 Personal history of transient ischemic attack (TIA), and cerebral infarction without residual deficits; W22.8XXA Striking against or struck by other objects, initial encounter; Y92.410 Unspecified street and highway as the place of occurrence of the external cause
CPT/HCPCS: 73630-LT; 99283; 99284